=== PATIENT | female | born 1930 ===

== ENCOUNTER 2017-01-31 15:17 | Emergency (ER) | payer MEDICARE ==
[2017-01-31 15:20] VITALS: BP 155/55; PULSE 53; RESP 16; TEMP 97.4; O2SAT 99
--- NOTE | 2017-01-31 15:46 | ED PDOC ---
Upper Extremity Pain/Injury Time Seen by Provider: 01/31/17 15:38 Chief Complaint (Nursing): Weakness/Neurological Deficit Chief Complaint (Provider): Right shoulder pain History Per: Patient History/Exam Limitations: no limitations Onset/Duration Of Symptoms: Days (1x week) Current Symptoms Are (Timing): Still Present Severity: Moderate Additional Complaint(s): 86 year old female with a pertinent medical history of HTN and previous trauma to the right shoulder (2x years ago, no recent trauma) presents to the ED with complaints of right shoulder pain that started 1x week ago. She reports having associated numbness and tingling and is unable to raise her arm and has dizziness secondary to the pain. She denies having any weakness, paresthesias, LOC, and headaches. PMD: patient does not recall. Past Medical History Reviewed: Historical Data, Nursing Documentation, Vital Signs Vital Signs: Last Vital Signs Temp 97.4 F L 01/31/17 15:18 Pulse 53 L 01/31/17 15:18 Resp 16 01/31/17 15:18 BP 155/55 H 01/31/17 15:18 Pulse Ox 99 01/31/17 15:18 - Medical History PMH: HTN - Family History Family History: States: Unknown Family Hx - Home Medications Home Medications: Ambulatory Orders Medication Instructions Recorded Naproxen [Naprosyn Tab] 375 mg PO BID #20 tab 01/31/17 - Allergies Allergies/Adverse Reactions: Allergies Allergy/AdvReac Type Severity Reaction Status Date / Time No Known Allergies Allergy Verified 01/31/17 15:18 Review of Systems Musculoskeletal: Positive for: Shoulder Pain (right shoulder) Neurological: Positive for: Numbness (and tingling to the right shoulder), Dizziness. Negative for: Weakness, Headache Physical Exam - Reviewed Nursing Documentation Reviewed: Yes Vital Signs Reviewed: Yes - Physical Exam Appears: Positive for: Well, Non-toxic, No Acute Distress Head Exam: Positive for: ATRAUMATIC, NORMOCEPHALIC Skin: Positive for: Normal Color, Warm, Dry Cardiovascular/Chest: Positive for: Regular Rate, Rhythm Respiratory: Positive for: Normal Breath Sounds. Negative for: Respiratory Distress Extremity: Positive for: Tenderness (right shoulder:t enderness. pain on raising arm and adducting arm. peripheral and radial pulse 2/4). Negative for: Normal ROM Neurologic/Psych: Positive for: Alert, Oriented (3x), Other (equal strength and grap bilaterally). Negative for: Motor/Sensory Deficits - ECG O2 Sat by Pulse Oximetry: 99 (RA) Pulse Ox Interpretation: Normal Medical Decision Making Medical Decision Makin:38 Initial impression: 86 year old female with right shoulder pain. Initial plan: * toradol 60mg IM * XRay shoulder right * reevaluation Scribe Attestation: Documented by Shelby Devine, acting as a scribe for Gareth Yusuf MD. Provider Scribe Attestation: All medical record entries made by the Scribe were at my direction and personally dictated by me. I have reviewed the chart and agree that the record accurately reflects my personal performance of the history, physical exam, medical decision making, and the department course for this patient. I have also personally directed, reviewed, and agree with the discharge instructions and disposition. Disposition - Clinical Impression Clinical Impression: Bursitis of shoulder - Patient ED Disposition Is Patient to be Admitted: No Counseled Patient/Family Regarding: Studies Performed, Diagnosis, Need For Followup, Rx Given - Disposition Referrals: [facility] [Outside] Disposition: Routine/Home Disposition Time: 17:30 Condition: FAIR Prescriptions: Naproxen [Naprosyn Tab] 375 mg PO BID #20 tab Instructions: Shoulder Bursitis (ED)
--- NOTE | 2017-01-31 16:28 | RAD ---
PROCEDURE: Radiographs of the Right Shoulder HISTORY: pain COMPARISON: No prior. FINDINGS: BONES: Normal. No fracture. Osteopenia. JOINTS: Normal. Glenohumeral and acromioclavicular joints preserved. No osteoarthritis. SOFT TISSUES: Normal. OTHER FINDINGS: None. IMPRESSION: No gross fracture.
== END 2017-01-31 18:20 | disposition home or self-care (01) ==
LOC: H.ER 15:17
DX: M75.51 Bursitis of right shoulder (principal); I10 Essential (primary) hypertension
CPT/HCPCS: 73030; 96372; 99284; J1885

== ENCOUNTER 2017-02-10 07:09 | Emergency (ER) | payer MEDICARE ==
[2017-02-10 07:56] VITALS: O2SAT 98
[2017-02-10 08:06] VITALS: TEMP 97.7
[2017-02-10] MEDS ORDERED: Oxycodone/Acetaminophen 5/325 mg Tab PO STA (09:16)
--- NOTE | 2017-02-10 09:22 | ED PDOC ---
Upper Extremity Pain/Injury Time Seen by Provider: 02/10/17 08:52 Chief Complaint (Nursing): Upper Extremity Problem/Injury Chief Complaint (Provider): Shoulder pain History Per: Patient History/Exam Limitations: no limitations Onset/Duration Of Symptoms: Days (x2 weeks) Current Symptoms Are (Timing): Still Present Severity: Mild Exacerbating Factor(s): Movement Additional Complaint(s): Patient is an 86 year old female presenting to the ED complaining of rt shoulder pain x2 weeks. Patient was seen here 10 days ago for the same complaint and was given a toradol shot with no relief. Pain is worse with movement and alleviated with rest. Denies chest pain, shortness of breath, numbness, tingling, or weakness. pMD: none Past Medical History Reviewed: Historical Data, Nursing Documentation, Vital Signs Vital Signs: Last Vital Signs Temp 97.7 F 02/10/17 08:06 Pulse 63 02/10/17 08:06 Resp 18 02/10/17 08:06 BP 160/79 H 02/10/17 08:06 Pulse Ox 98 02/10/17 08:06 - Medical History PMH: Atrial Fibrillation, HTN, Hypercholesterolemia - Family History Family History: States: No Known Family Hx - Home Medications Home Medications: Ambulatory Orders Medication Instructions Recorded Naproxen [Naprosyn Tab] 375 mg PO BID #20 tab 01/31/17 - Allergies Allergies/Adverse Reactions: Allergies Allergy/AdvReac Type Severity Reaction Status Date / Time acetaminophen [From Percocet] Allergy Mild RASH Verified 02/10/17 08:00 oxycodone [From Percocet] Allergy Mild RASH Verified 02/10/17 08:00 Review of Systems ROS Statement: Except As Marked, All Systems Reviewed And Found Negative Cardiovascular: Negative for: Chest Pain Respiratory: Negative for: Shortness of Breath Musculoskeletal: Positive for: Shoulder Pain Neurological: Negative for: Weakness, Numbness Physical Exam - Reviewed Nursing Documentation Reviewed: Yes Vital Signs Reviewed: Yes - Physical Exam Appears: Positive for: Well, Non-toxic, No Acute Distress Head Exam: Positive for: ATRAUMATIC, NORMAL INSPECTION, NORMOCEPHALIC Skin: Positive for: Normal Color, Warm, DRY Eye Exam: Positive for: EOMI, Normal appearance, PERRL Neck: Positive for: Normal, Painless ROM Cardiovascular/Chest: Positive for: Regular Rate, Rhythm. Negative for: Edema, Gallop, Murmur Respiratory: Positive for: Normal Breath Sounds. Negative for: Accessory Muscle Use, Rhonchi, Respiratory Distress Pulses-Radial (L): 2+ Pulses-Radial (R): 2+ Back: Positive for: Other (Moderate kyphosis). Negative for: L CVA Tenderness, R CVA Tenderness Extremity: Positive for: Capillary Refill (nml), Other (right shoulder pain with rom no focal tenderness). Negative for: Normal ROM (limited ROM to right shoulder secondary to pain), Tenderness, Calf Tenderness, Deformity, Swelling Neurologic/Psych: Positive for: Alert, medical i d sales II-XII, Oriented, Gait (steady). Negative for: Motor/Sensory Deficits - ECG O2 Sat by Pulse Oximetry: 98 (ra) Pulse Ox Interpretation: Normal Medical Decision Making Medical Decision Making: Time: 8:55 Impression; rt shoulder pain Plan; EKG CXR Oxycodone XR rt shoulder 11:40 Patient refused percocet and wants to go home. Upon provider reevaluation patient is feeling better, is medically stable, and requires no further treatment in the ED at this time. Scribe Attestation Documented by Jono Strong acting as a scribe for Cristo Luke MD Provider Attestation: All medical record entries made by the Scribe were at my direction and personally dictated by me. I have reviewed the chart and agree that the record accurately reflects my personal performance of the history, physical exam, medical decision making, and the department course for this patient. I have also personally directed, reviewed, and agree with the discharge instructions and disposition. Disposition - Clinical Impression Clinical Impression: Bursitis of shoulder, Shoulder pain - Patient ED Disposition Is Patient to be Admitted: No Counseled Patient/Family Regarding: Studies Performed, Diagnosis, Need For Followup - Disposition Referrals: Marlon Granger III, MD [Staff Provider] - (2 to 3 days) Disposition: Routine/Home Disposition Time: 11:40 Condition: STABLE Instructions: Shoulder Bursitis (ED)
[2017-02-10] MEDS ORDERED: Oxycodone/Acetaminophen 5/325 mg Tab ONE (09:23)
--- NOTE | 2017-02-10 10:30 | RAD ---
PROCEDURE: Radiographs of the Right Shoulder HISTORY: right shoulder pain COMPARISON: 01/31/2017 FINDINGS: BONES: Mildly limited evaluation due to suboptimal positioning. No definite fracture or dislocation. JOINTS: Mild degenerative changes. SOFT TISSUES: Normal. OTHER FINDINGS: None. IMPRESSION: No definite fracture identified on this mildly limited evaluation. If indicated, repeat evaluation with optimal positioning recommended
--- NOTE | 2017-02-10 10:43 | RAD ---
PROCEDURE: CHEST RADIOGRAPH, 1 VIEW HISTORY: pain COMPARISON: None available. FINDINGS: LUNGS: Mild hilar enlargement. PLEURA: No pneumothorax or pleural fluid seen.Biapical pleural parenchymal thickening noted. CARDIOVASCULAR: Normal. OSSEOUS STRUCTURES: The osseous structures demonstrate degenerative changes. VISUALIZED UPPER ABDOMEN: Upper abdomen is suboptimally evaluated. OTHER FINDINGS: None. IMPRESSION: Mild hilar enlargement. PA lateral chest radiographs recommended.
[2017-02-10 11:49] VITALS: BP 129/65; PULSE 79; RESP 17
--- NOTE | 2017-02-11 07:41 | CARD ---
APPROVED REPORT EKG Measurement Heart [id number] [id number] <Conclusion> Normal sinus rhythm Normal ECG
== END 2017-02-10 11:53 | disposition home or self-care (01) ==
LOC: H.ER 07:09
DX: M75.50 Bursitis of unspecified shoulder (principal); I10 Essential (primary) hypertension; I48.91 Unspecified atrial fibrillation; E78.00 Pure hypercholesterolemia, unspecified; R07.9 Chest pain, unspecified